=== PATIENT | male | born 1955 | race Hispanic/Latino ===

== ENCOUNTER 2017-07-03 09:32 | Inpatient (IN) | payer MEDICARE ==
[2017-07-03] VITALS (14 sets, daily range): BP systolic 120–145; BP diastolic 75–86
[~2017-07-03] VITALS: Ht 160 cm; Wt 64.8 kg
[2017-07-03 10:14] LABS: BASOPHILS % (AUTO) 1.3 % (0.0-5.0); EOSINOPHILS % (AUTO) 1.1 % (0.0-8.0); HEMATOCRIT 42.6 % (42-54); LYMPHOCYTES % (AUTO) 14.9 % (21.0-51.0); MEAN CORPUSCULAR HEMOGLOBIN 30.4 pg (27.0-33.0); MEAN CORPUSCULAR HGB CONC 33.4 g/dL (32.0-36.0); MEAN CORPUSCULAR VOLUME 91.1 fL (79-99); MONOCYTES % (AUTO) 9.7 % (3.0-13.0); NUCLEATED RED BLOOD CELLS 0.1 % (0.0-0.19); PLATELET COUNT (AUTO) 112 K/uL (130-400); RED BLOOD CELL COUNT(AUTO) 4.67 MIL/uL (4.50-6.20); RED CELL DISTRIBUTION WIDTH 18.4 % (11.0-15.5); WHITE BLOOD COUNT (AUTO) 5.1 K/uL (4.8-10.8)
[2017-07-03] MEDS ORDERED: MEROPENEM 1 GM VIAL ONE (10:19)
[2017-07-03 10:33] LABS: CREATININE 4.4 mg/dL (0.5-1.5); POTASSIUM 3.5 mmol/L (3.5-5.1)
[2017-07-03 10:37] LABS: ALBUMIN 3.2 g/dL (3.5-5.0); BILIRUBIN,TOTAL 4.2 mg/dL (0.2-1.0); TOTAL PROTEIN, SERUM 7.9 g/dL (6.0-8.3)
[2017-07-03 10:43] LABS: INR 1.2 (0.85-1.15); PARTIAL THROMBOPLASTIN TIME 27.5 SEC (26.3-35.5); PROTHROMBIN TIME 12.6 SEC (9.6-11.6)
[2017-07-03] MEDS ORDERED: DEXAMETHASONE SOD PHOSPHATE 10MG/ML 1ML VIAL ONE (15:04)
[2017-07-03] MEDS ORDERED: GLYCOPYRROLATE 0.2 MG/ML 5 ML VIAL ONE (15:04)
[2017-07-03] MEDS ORDERED: LIDOCAINE PF 2% 5ML ABBOJECT ONE (15:04)
[2017-07-03] MEDS ORDERED: FENTANYL CITRATE PF 50 MCG/1 ML 2ML VIAL ONE ×2 (15:05→16:11)
[2017-07-03] MEDS ORDERED: MIDAZOLAM HCL 1 MG/ML 2ML VIAL ONE (15:05)
[2017-07-03] MEDS ORDERED: PROPOFOL 10 MG/ML 20ML VIAL IV ONE (15:05)
[2017-07-03] MEDS ORDERED: NEOMY SULF/POLYMYXIN B SULFATE 1 ML AMPUL IR ONE (15:41)
[2017-07-03] MEDS: VANCOMYCIN 1.5 GM in SODIUM CHLORIDE 0.9% 250 ML IV SCH ×2 (16:00→16:15)
[2017-07-03] MEDS ORDERED: NEOMY SULF/BACITRAC ZN/POLY OINT 30GM TUBE TP ONE (16:04)
[2017-07-03] MEDS ORDERED: MORPHINE SULFATE 2 MG/ML 1ML SYG IV PRN (16:45)
[2017-07-03] MEDS ORDERED: ONDANSETRON HCL MDV 20ML 2 MG/ML VIAL IVP PRN ×2 (16:45→18:15)
[2017-07-03] MEDS ORDERED: HYDROCODONE/ACETAMINOPHEN 5/325 MG TAB PO PRN (16:45)
[2017-07-03] MEDS ORDERED: SODIUM CHLORIDE 0.9% 1000ML 1,000 ML IV ONE (17:08)
[2017-07-03] MEDS ORDERED: VANCOMYCIN PROTOCOL PER PHARMACY IV SCH (18:15)
[2017-07-03] MEDS ORDERED: AEC81 PO (18:41)
[2017-07-03] MEDS ORDERED: SUCR500T PO (18:41)
[2017-07-03] MEDS ORDERED: SEVE800T7 PO (18:41)
[2017-07-04 03:58] VITALS: BP 133/82
[2017-07-04 05:04] LABS: MEAN CORPUSCULAR HEMOGLOBIN 31.3 pg (27.0-33.0); MEAN CORPUSCULAR HGB CONC 33.5 g/dL (32.0-36.0); MEAN CORPUSCULAR VOLUME 93.4 fL (79-99); NUCLEATED RED BLOOD CELLS 0.1 % (0.0-0.19); PLATELET COUNT (AUTO) 136 K/uL (130-400); RED BLOOD CELL COUNT(AUTO) 4.39 MIL/uL (4.50-6.20); WHITE BLOOD COUNT (AUTO) 5.8 K/uL (4.8-10.8)
[2017-07-04 05:27] LABS: ALBUMIN 2.8 g/dL (3.5-5.0); BILIRUBIN,DIRECT 2.9 mg/dL (0.0-0.3); BILIRUBIN,TOTAL 4.3 mg/dL (0.2-1.0); CREATININE 6.2 mg/dL (0.5-1.5); POTASSIUM 4.4 mmol/L (3.5-5.1)
[2017-07-04 05:28] LABS: BASOPHILS % (MANUAL) 1 % (0-2); LYMPHOCYTES % (MANUAL) 16 % (22-44); MONOCYTES % (MANUAL) 14 % (2-9); REACTIVE LYMPHOCYTES 2 % (0-0); SEGMENTED NEUTROPHILS % 67 % (40-70)
[2017-07-04 05:29] LABS: MAN.DIFF COMMENT-IMPRESSION MANUAL DIFFERENTIAL
[2017-07-04 05:30] LABS: PLATELET MORPHOLOGY COMMENT ADEQUATE
[2017-07-04 07:00] VITALS: BP 118/79
[2017-07-04] MEDS: PANTOPRAZOLE SODIUM 40 MG TABLET.DR PO SCH (08:50)
[2017-07-04] MEDS: MEROPENEM 1 GM VIAL IVP SCH (08:50)
[2017-07-04] MEDS ORDERED: MEROPENEM 1GM IVPB PREMIXED 1 GM IV SCH (09:00)
[2017-07-04 11:00] VITALS: BP 113/73
[2017-07-04] MEDS ORDERED: ACETAMINOPHEN 325 MG TAB PO PRN (15:45)
[2017-07-04 16:00] VITALS: BP 129/83
[2017-07-04] MEDS: SEVELAMER HCL 800 MG TABLET PO SCH (16:56)
[2017-07-04] MEDS: SUCROFERRIC OXYHYDROXIDE 500 MG PO SCH (16:56)
[2017-07-04 19:34] VITALS: BP 122/76
[2017-07-05] VITALS (7 sets, daily range): BP systolic 124–147; BP diastolic 72–91
[2017-07-05 04:48] LABS: EOSINOPHILS % (AUTO) 1.4 % (0.0-8.0); HEMATOCRIT 41.6 % (42-54); LYMPHOCYTES % (AUTO) 14.9 % (21.0-51.0); MEAN CORPUSCULAR HEMOGLOBIN 30.7 pg (27.0-33.0); MONOCYTES % (AUTO) 13.7 % (3.0-13.0); NUCLEATED RED BLOOD CELLS 0.1 % (0.0-0.19); PLATELET COUNT (AUTO) 120 K/uL (130-400); RED BLOOD CELL COUNT(AUTO) 4.47 MIL/uL (4.50-6.20); RED CELL DISTRIBUTION WIDTH 18.9 % (11.0-15.5); WHITE BLOOD COUNT (AUTO) 5.2 K/uL (4.8-10.8)
[2017-07-05 05:08] LABS: CREATININE 7.8 mg/dL (0.5-1.5); POTASSIUM 4.2 mmol/L (3.5-5.1)
[2017-07-05] MEDS: SEVELAMER HCL 800 MG TABLET PO SCH ×3 (08:00→17:00)
[2017-07-05] MEDS: SUCROFERRIC OXYHYDROXIDE 500 MG PO SCH ×3 (08:00→17:00)
[2017-07-05] MEDS: FOLIC ACID/VITAMIN B COMP W-C 1 MG CAPSULE PO SCH (08:48)
[2017-07-05] MEDS: ASPIRIN 81 MG EC TAB PO SCH (08:48)
[2017-07-05] MEDS: PANTOPRAZOLE SODIUM 40 MG TABLET.DR PO SCH (08:48)
[2017-07-05] MEDS: MEROPENEM 1 GM VIAL IVP SCH (08:49)
[2017-07-05] MEDS ORDERED: VANCOMYCIN 1GM+NS 250ML 250 ML IV SCH (16:00)
[2017-07-06 03:48] VITALS: BP 144/86
[2017-07-06 04:13] LABS: BASOPHILS % (AUTO) 0.9 % (0.0-5.0); EOSINOPHILS % (AUTO) 1.9 % (0.0-8.0); HEMATOCRIT 41.6 % (42-54); LYMPHOCYTES % (AUTO) 12.9 % (21.0-51.0); MEAN CORPUSCULAR HEMOGLOBIN 30.4 pg (27.0-33.0); MEAN CORPUSCULAR HGB CONC 32.9 g/dL (32.0-36.0); MEAN CORPUSCULAR VOLUME 92.6 fL (79-99); MONOCYTES % (AUTO) 10.7 % (3.0-13.0); NEUTROPHILS % (AUTO) 73.6 % (40.0-77.0); NUCLEATED RED BLOOD CELLS 0.1 % (0.0-0.19); PLATELET COUNT (AUTO) 139 K/uL (130-400); RED BLOOD CELL COUNT(AUTO) 4.49 MIL/uL (4.50-6.20); RED CELL DISTRIBUTION WIDTH 18.6 % (11.0-15.5); WHITE BLOOD COUNT (AUTO) 5.9 K/uL (4.8-10.8)
[2017-07-06 04:24] LABS: POTASSIUM 4.5 mmol/L (3.5-5.1)
[2017-07-06 04:27] LABS: CREATININE 9.4 mg/dL (0.5-1.5)
[2017-07-06 07:16] VITALS: BP 124/80
[2017-07-06] MEDS: MEROPENEM 1 GM VIAL IVP SCH (07:46)
[2017-07-06] MEDS: FOLIC ACID/VITAMIN B COMP W-C 1 MG CAPSULE PO SCH (07:46)
[2017-07-06] MEDS: ASPIRIN 81 MG EC TAB PO SCH (07:46)
[2017-07-06] MEDS: PANTOPRAZOLE SODIUM 40 MG TABLET.DR PO SCH (07:46)
[2017-07-06] MEDS: SUCROFERRIC OXYHYDROXIDE 500 MG PO SCH ×3 (07:46→16:54)
[2017-07-06] MEDS: SEVELAMER HCL 800 MG TABLET PO SCH ×3 (07:46→16:54)
[2017-07-06 11:12] VITALS: BP 135/88
[2017-07-06 16:04] VITALS: BP 123/79
[2017-07-06 19:33] VITALS: BP 128/83
[2017-07-06 23:23] VITALS: BP 136/84
[2017-07-07 04:01] VITALS: BP 136/88
[2017-07-07 04:45] LABS: HEMATOCRIT 40.9 % (42-54); MEAN CORPUSCULAR HEMOGLOBIN 30.7 pg (27.0-33.0); MEAN CORPUSCULAR HGB CONC 33.3 g/dL (32.0-36.0); MEAN CORPUSCULAR VOLUME 92.2 fL (79-99); NUCLEATED RED BLOOD CELLS 0.1 % (0.0-0.19); PLATELET COUNT (AUTO) 127 K/uL (130-400); RED BLOOD CELL COUNT(AUTO) 4.44 MIL/uL (4.50-6.20); RED CELL DISTRIBUTION WIDTH 18.3 % (11.0-15.5); WHITE BLOOD COUNT (AUTO) 7.1 K/uL (4.8-10.8)
[2017-07-07 04:49] LABS: CREATININE 7.2 mg/dL (0.5-1.5); POTASSIUM 4.1 mmol/L (3.5-5.1)
[2017-07-07 07:21] VITALS: BP 115/71
[2017-07-07] MEDS: SUCROFERRIC OXYHYDROXIDE 500 MG PO SCH ×2 (07:31→11:32)
[2017-07-07] MEDS: FOLIC ACID/VITAMIN B COMP W-C 1 MG CAPSULE PO SCH (07:33)
[2017-07-07] MEDS: ASPIRIN 81 MG EC TAB PO SCH (07:33)
[2017-07-07] MEDS: MEROPENEM 1 GM VIAL IVP SCH (07:33)
[2017-07-07] MEDS: PANTOPRAZOLE SODIUM 40 MG TABLET.DR PO SCH (07:33)
[2017-07-07] MEDS: SEVELAMER HCL 800 MG TABLET PO SCH ×2 (07:33→11:32)
[2017-07-07 11:28] VITALS: BP 128/90
[2017-07-07] MEDS ORDERED: SULFAMETHOX-TMP DS 800/160 TAB PO SCH (11:30)
== END 2017-07-07 13:50 | disposition home health service (06) | DRG 252 ==
LOC: EDH 09:32 → EDHIP 14:00 → OBSVTOIN 14:00 → 2DH 17:43
PROVIDERS: ADMIT Internal Medicine Nephrology; ATTEND Internal Medicine Nephrology
PROC: 03BC0ZZ Excision of Left Radial Artery, Open Approach (ICD-10-PCS; principal; 2017-07-03 15:10)
PROC: 5A1D70Z Performance of Urinary Filtration, Intermittent, Less than 6 Hours Per Day (ICD-10-PCS; 2017-07-06)
DX: T82.7XXA Infection and inflammatory reaction due to other cardiac and vascular devices, implants and grafts, initial encounter (principal); N18.6 End stage renal disease; E11.22 Type 2 diabetes mellitus with diabetic chronic kidney disease; I12.0 Hypertensive chronic kidney disease with stage 5 chronic kidney disease or end stage renal disease; E11.51 Type 2 diabetes mellitus with diabetic peripheral angiopathy without gangrene; E83.39 Other disorders of phosphorus metabolism; I48.92 Unspecified atrial flutter; L03.90 Cellulitis, unspecified; R17 Unspecified jaundice; D64.9 Anemia, unspecified; E78.5 Hyperlipidemia, unspecified; I25.10 Atherosclerotic heart disease of native coronary artery without angina pectoris; Y83.2 Surgical operation with anastomosis, bypass or graft as the cause of abnormal reaction of the patient, or of later complication, without mention of misadventure at the time of the procedure; Z87.891 Personal history of nicotine dependence; Z88.0 Allergy status to penicillin; Z99.2 Dependence on renal dialysis; Z95.1 Presence of aortocoronary bypass graft; Z91.19 Patient's noncompliance with other medical treatment and regimen
CPT/HCPCS: 36415; 71045; 76700; 80048; 80053; 80076; 82948; 85025; 85027; 85610; 85730; 87040; 87070; 87076; 87077; 87186; 87205; 88304; 90935; 93005; A4218; J1100; J2001; J2185; J2250; J2704; J3010; J3370; J3490; J7030

== ENCOUNTER → 2017-10-08 | Outpatient (CLI) | payer MEDICARE ==
[~2017-10-08] MED LIST: AEC81 PO; SEVE800T7 PO; SUCR500T PO
== END | disposition home or self-care (01) ==
LOC: RAH 10:10
PROVIDERS: ATTEND Urology
DX: N28.1 Cyst of kidney, acquired (principal); N26.1 Atrophy of kidney (terminal); R18.8 Other ascites
CPT/HCPCS: 74176

== ENCOUNTER 2017-12-12 08:32 | Inpatient (IN) | payer MEDICARE ==
[~2017-12-12] VITALS: Ht 160 cm; Wt 65.4 kg
[2017-12-12 08:53] LABS: BASOPHILS % (AUTO) 0.5 % (0.0-5.0); EOSINOPHILS % (AUTO) 0.5 % (0.0-8.0); HEMATOCRIT 39.1 % (42-54); LYMPHOCYTES % (AUTO) 6.5 % (21.0-51.0); MEAN CORPUSCULAR HEMOGLOBIN 31.5 pg (27.0-33.0); MEAN CORPUSCULAR HGB CONC 32.8 g/dL (32.0-36.0); MEAN CORPUSCULAR VOLUME 95.9 fL (79-99); MONOCYTES % (AUTO) 8.9 % (3.0-13.0); NEUTROPHILS % (AUTO) 83.6 % (40.0-77.0); PLATELET COUNT (AUTO) 98 K/uL (130-400); RED BLOOD CELL COUNT(AUTO) 4.07 MIL/uL (4.50-6.20); WHITE BLOOD COUNT (AUTO) 8.2 K/uL (4.8-10.8)
[2017-12-12 09:07] LABS: POTASSIUM 3.3 mmol/L (3.5-5.1)
[2017-12-12] MEDS ORDERED: VANCOMYCIN 1GM+NS 250ML 250 ML IV ONE (09:08)
[2017-12-12] MEDS ORDERED: ONDANSETRON HCL 4 MG/2 ML VIAL ONE (09:10)
[2017-12-12] MEDS ORDERED: MORPHINE SULFATE 4 MG/1ML SYG ONE (09:10)
[2017-12-12 09:11] LABS: ALBUMIN 2.7 g/dL (3.5-5.0); BILIRUBIN,TOTAL 5.3 mg/dL (0.2-1.0); TOTAL PROTEIN, SERUM 6.7 g/dL (6.0-8.3)
[2017-12-12 09:19] LABS: CREATININE 6.8 mg/dL (0.5-1.5)
[2017-12-12 11:31] VITALS: BP 134/77
[2017-12-12] MEDS ORDERED: DEXTROSE 50%-WATER 50 ML DISP.SYRIN IV PRN (13:00)
[2017-12-12] MEDS ORDERED: GLUCAGON 1MG KIT 1 MG ML IM PRN (13:00)
[2017-12-12] MEDS ORDERED: SEVE800T7 PO (15:13)
[2017-12-12] MEDS ORDERED: PRAV20TA4 PO (15:13)
[2017-12-12] MEDS ORDERED: FOLI0.8T22 PO (15:14)
[2017-12-12] MEDS ORDERED: SUCR500T PO ×2 (15:18)
[2017-12-12 16:00] VITALS: BP 132/79
[2017-12-12] MEDS: INSULIN R PO SS1 SQ SCH ×2 (16:30→21:00)
[2017-12-12] MEDS: HYDROCODONE/ACETAMINOPHEN 5/325 MG TAB PO PRN ×2 (17:25→22:39)
[2017-12-12] MEDS: LEVOFLOXACIN 250 MG/D5W 50ML 50 ML IV SCH (17:48)
[2017-12-12 20:08] VITALS: BP 129/65
[2017-12-12] MEDS ORDERED: ZOSYN 3.375GM+NS 50ML 50 ML IV SCH ×2 (21:00)
[2017-12-13] VITALS (7 sets, daily range): BP systolic 88–139; BP diastolic 52–83
[2017-12-13 06:15] LABS: CREATININE 7.5 mg/dL (0.5-1.5); PHOSPHORUS 6.8 mg/dL (2.5-4.9); POTASSIUM 3.9 mmol/L (3.5-5.1)
[2017-12-13] MEDS: INSULIN R PO SS1 SQ SCH ×4 (07:30→21:00)
[2017-12-13] MEDS: LEVOFLOXACIN 250 MG/D5W 50ML 50 ML IV SCH (10:54)
[2017-12-13] MEDS: SEVELAMER HCL 800 MG TABLET PO SCH ×2 (11:28→16:44)
[2017-12-13] MEDS: FOLIC ACID/VITAMIN B COMP W-C 1 MG CAPSULE PO SCH (11:28)
[2017-12-13 12:04] LABS: HEMATOCRIT 38.6 % (42-54); MEAN CORPUSCULAR HEMOGLOBIN 32.3 pg (27.0-33.0); MEAN CORPUSCULAR HGB CONC 33.4 g/dL (32.0-36.0); MEAN CORPUSCULAR VOLUME 96.6 fL (79-99); PLATELET COUNT (AUTO) 112 K/uL (130-400); RED CELL DISTRIBUTION WIDTH 16.9 % (11.0-15.5); WHITE BLOOD COUNT (AUTO) 8.8 K/uL (4.8-10.8)
[2017-12-13] MEDS: SIMVASTATIN 20 MG TABLET PO SCH (21:03)
[2017-12-13] MEDS: HYDROCODONE/ACETAMINOPHEN 5/325 MG TAB PO PRN (21:03)
[2017-12-14 03:05] VITALS: BP 134/71
[2017-12-14 04:52] LABS: PHOSPHORUS 7.6 mg/dL (2.5-4.9)
[2017-12-14 05:05] LABS: CREATININE 8.5 mg/dL (0.5-1.5)
[2017-12-14] MEDS: HYDROCODONE/ACETAMINOPHEN 5/325 MG TAB PO PRN ×3 (06:18→18:35)
[2017-12-14] MEDS: INSULIN R PO SS1 SQ SCH ×4 (06:38→20:47)
[2017-12-14 07:30] VITALS: BP 130/74
[2017-12-14] MEDS: SEVELAMER HCL 800 MG TABLET PO SCH ×3 (08:00→18:34)
[2017-12-14] MEDS ORDERED: 0.9% SODIUM CHLORIDE 250 ML IV BAG IV PRN (10:45)
[2017-12-14] MEDS ORDERED: ALBUMIN (HUMAN) 25% 100 ML IV PRN (10:45)
[2017-12-14 11:00] VITALS: BP 138/33
[2017-12-14] MEDS ORDERED: VANCOMYCIN 1GM+NS 250ML 250 ML IV ONE (11:17)
[2017-12-14] MEDS: ASPIRIN 81 MG EC TAB PO SCH (11:19)
[2017-12-14] MEDS: FOLIC ACID/VITAMIN B COMP W-C 1 MG CAPSULE PO SCH (11:19)
[2017-12-14] MEDS: LEVOFLOXACIN 250 MG/D5W 50ML 50 ML IV SCH (11:23)
[2017-12-14] MEDS: VANCOMYCIN 1GM+NS 250ML 250 ML IV SCH (11:25)
[2017-12-14 16:00] VITALS: BP 130/72
[2017-12-14 20:00] VITALS: BP 123/71
[2017-12-14] MEDS: SIMVASTATIN 20 MG TABLET PO SCH (20:47)
[2017-12-15 00:12] VITALS: BP 126/66
[2017-12-15 04:12] VITALS: BP 125/70
[2017-12-15 04:33] LABS: CREATININE 6.4 mg/dL (0.5-1.5); POTASSIUM 3.6 mmol/L (3.5-5.1)
[2017-12-15] MEDS: HYDROCODONE/ACETAMINOPHEN 5/325 MG TAB PO PRN ×4 (05:55→20:49)
[2017-12-15] MEDS: INSULIN R PO SS1 SQ SCH ×4 (05:58→20:53)
[2017-12-15 07:30] VITALS: BP 137/72
[2017-12-15] MEDS: SEVELAMER HCL 800 MG TABLET PO SCH ×3 (08:00→17:00)
[2017-12-15] MEDS: ASPIRIN 81 MG EC TAB PO SCH (10:18)
[2017-12-15] MEDS: FOLIC ACID/VITAMIN B COMP W-C 1 MG CAPSULE PO SCH (10:18)
[2017-12-15] MEDS: LEVOFLOXACIN 250 MG/D5W 50ML 50 ML IV SCH (10:19)
[2017-12-15 11:00] VITALS: BP 119/65
[2017-12-15 16:00] VITALS: BP 130/79
[2017-12-15 20:00] VITALS: BP 133/67
[2017-12-15] MEDS: SIMVASTATIN 20 MG TABLET PO SCH (20:51)
[2017-12-16] VITALS (24 sets, daily range): BP systolic 99–145; BP diastolic 44–80
[2017-12-16] MEDS: HYDROCODONE/ACETAMINOPHEN 5/325 MG TAB PO PRN ×2 (03:31→07:49)
[2017-12-16] MEDS: INSULIN R PO SS1 SQ SCH ×3 (05:48→21:00)
[2017-12-16] MEDS: SEVELAMER HCL 800 MG TABLET PO SCH ×2 (07:49→13:30)
[2017-12-16] MEDS: LEVOFLOXACIN 250 MG/D5W 50ML 50 ML IV SCH (07:49)
[2017-12-16] MEDS: ASPIRIN 81 MG EC TAB PO SCH (07:50)
[2017-12-16] MEDS: FOLIC ACID/VITAMIN B COMP W-C 1 MG CAPSULE PO SCH (07:50)
[2017-12-16] MEDS: SODIUM CHLORIDE 0.9% 1000ML 1,000 ML IV PRN (09:17)
[2017-12-16] MEDS ORDERED: PROPOFOL 10 MG/ML 20ML VIAL IV ONE (09:37)
[2017-12-16] MEDS ORDERED: FENTANYL CITRATE PF 50 MCG/1 ML 2ML VIAL ONE (09:37)
[2017-12-16] MEDS ORDERED: KETAMINE 50MG/ML SYRINGE 50 MG/ML DISP.SYRIN IV ONE (09:39)
[2017-12-16] MEDS ORDERED: ACETAMINOPHEN-CODEINE 300/30MG TAB PO PRN (10:15)
[2017-12-16] MEDS: SODIUM CHLORIDE 0.9% 1000ML 1,000 ML IV SCH ×2 (10:15→22:23)
[2017-12-16] MEDS: VANCOMYCIN 1GM+NS 250ML 250 ML IV SCH (13:30)
[2017-12-16] MEDS ORDERED: IOHEXOL-350 75 ML VIAL IV ONE (15:06)
[2017-12-16] MEDS ORDERED: IOHEXOL-350 50ML VIAL IV ONE (15:07)
[2017-12-16] MEDS: MORPHINE SULFATE 4 MG/1ML SYG IV PRN (18:52)
[2017-12-16] MEDS: SIMVASTATIN 20 MG TABLET PO SCH (22:20)
[2017-12-16] MEDS: PREDNISONE 20 MG TABLET PO SCH (22:20)
[2017-12-16] MEDS: DIPHENHYDRAMINE HCL 25 MG CAPSULE PO SCH (22:20)
[2017-12-16] MEDS: FAMOTIDINE 20MG TAB 20 MG TAB PO SCH (22:23)
[2017-12-17 03:45] VITALS: BP 140/80
[2017-12-17 04:10] LABS: BASOPHILS % (AUTO) 0.3 % (0.0-5.0); EOSINOPHILS % (AUTO) 0.3 % (0.0-8.0); HEMATOCRIT 36.6 % (42-54); LYMPHOCYTES % (AUTO) 4.8 % (21.0-51.0); MEAN CORPUSCULAR HEMOGLOBIN 32.9 pg (27.0-33.0); MEAN CORPUSCULAR HGB CONC 33.9 g/dL (32.0-36.0); MEAN CORPUSCULAR VOLUME 96.8 fL (79-99); MONOCYTES % (AUTO) 11.3 % (3.0-13.0); NEUTROPHILS % (AUTO) 83.3 % (40.0-77.0); PLATELET COUNT (AUTO) 150 K/uL (130-400); RED BLOOD CELL COUNT(AUTO) 3.78 MIL/uL (4.50-6.20); RED CELL DISTRIBUTION WIDTH 17.4 % (11.0-15.5); WHITE BLOOD COUNT (AUTO) 11.1 K/uL (4.8-10.8)
[2017-12-17 04:19] LABS: CREATININE 5.8 mg/dL (0.5-1.5); POTASSIUM 4.3 mmol/L (3.5-5.1)
[2017-12-17] MEDS: MORPHINE SULFATE 4 MG/1ML SYG IV PRN ×2 (04:40→05:07)
[2017-12-17] MEDS ORDERED: PREDNISONE 20 MG TABLET PO SCH (07:00)
[2017-12-17] MEDS ORDERED: DIPHENHYDRAMINE HCL 25 MG CAPSULE PO SCH (07:00)
[2017-12-17] MEDS: INSULIN R PO SS1 SQ SCH ×5 (07:30→21:00)
[2017-12-17 08:00] VITALS: BP 160/90
[2017-12-17] MEDS: SEVELAMER HCL 800 MG TABLET PO SCH ×3 (08:00→16:32)
[2017-12-17] MEDS: FAMOTIDINE 20MG TAB 20 MG TAB PO SCH (09:21)
[2017-12-17] MEDS: DIPHENHYDRAMINE HCL 25 MG CAPSULE PO SCH (09:21)
[2017-12-17] MEDS: PREDNISONE 20 MG TABLET PO SCH (09:21)
[2017-12-17] MEDS: LEVOFLOXACIN 250 MG/D5W 50ML 50 ML IV SCH (09:59)
[2017-12-17] MEDS ORDERED: IOHEXOL-350 75 ML VIAL IV ONE (10:46)
[2017-12-17] MEDS ORDERED: IOHEXOL-350 50ML VIAL IV ONE (10:46)
[2017-12-17 11:00] VITALS: BP 144/80
[2017-12-17] MEDS: FOLIC ACID/VITAMIN B COMP W-C 1 MG CAPSULE PO SCH (12:03)
[2017-12-17] MEDS ORDERED: SEVE800 PO (12:19)
[2017-12-17 16:00] VITALS: BP 164/87
[2017-12-17] MEDS: CLOPIDOGREL BISULFATE 75 MG TAB PO SCH (18:47)
[2017-12-17 19:05] VITALS: BP 132/75
[2017-12-17] MEDS: SIMVASTATIN 20 MG TABLET PO SCH (22:04)
[2017-12-18] VITALS (7 sets, daily range): BP systolic 119–148; BP diastolic 61–80
[2017-12-18] MEDS ORDERED: ACETAMINOPHEN 325 MG TAB ONE (00:05)
[2017-12-18] MEDS: SODIUM CHLORIDE 0.9% 1000ML 1,000 ML IV SCH ×2 (02:15→21:38)
[2017-12-18 06:21] LABS: BASOPHILS % (AUTO) 0.1 % (0.0-5.0); HEMATOCRIT 37.9 % (42-54); LYMPHOCYTES % (AUTO) 2.3 % (21.0-51.0); MEAN CORPUSCULAR HEMOGLOBIN 31.5 pg (27.0-33.0); MEAN CORPUSCULAR HGB CONC 32.6 g/dL (32.0-36.0); MEAN CORPUSCULAR VOLUME 96.5 fL (79-99); MONOCYTES % (AUTO) 6.4 % (3.0-13.0); NEUTROPHILS % (AUTO) 91.2 % (40.0-77.0); PLATELET COUNT (AUTO) 133 K/uL (130-400); RED BLOOD CELL COUNT(AUTO) 3.93 MIL/uL (4.50-6.20); WHITE BLOOD COUNT (AUTO) 16.2 K/uL (4.8-10.8)
[2017-12-18 06:32] LABS: POTASSIUM 4.2 mmol/L (3.5-5.1)
[2017-12-18] MEDS: INSULIN R PO SS1 SQ SCH ×4 (07:30→21:00)
[2017-12-18] MEDS: HYDROCODONE/ACETAMINOPHEN 5/325 MG TAB PO PRN ×3 (10:13→21:41)
[2017-12-18] MEDS: LEVOFLOXACIN 250 MG/D5W 50ML 50 ML IV SCH (10:55)
[2017-12-18] MEDS: FOLIC ACID/VITAMIN B COMP W-C 1 MG CAPSULE PO SCH (10:58)
[2017-12-18] MEDS: CLOPIDOGREL BISULFATE 75 MG TAB PO SCH ×2 (10:59→12:38)
[2017-12-18] MEDS: FAMOTIDINE 20MG TAB 20 MG TAB PO SCH (10:59)
[2017-12-18] MEDS: SEVELAMER HCL 800 MG TABLET PO SCH ×3 (10:59→17:16)
[2017-12-18] MEDS ORDERED: PHARMACY COMMUNICATION MISC SCH (12:45)
[2017-12-18] MEDS: VANCOMYCIN 1GM+NS 250ML 250 ML IV SCH (13:05)
[2017-12-18] MEDS ORDERED: SEVELAMER HCL 800 MG TABLET PO SCH (17:00)
[2017-12-18] MEDS ORDERED: GENTAMICIN 80 MG/NS 100 ML PB 100 ML IV SCH (19:30)
[2017-12-18] MEDS: SIMVASTATIN 20 MG TABLET PO SCH (21:37)
[2017-12-19 03:13] VITALS: BP 133/71
[2017-12-19] MEDS: SODIUM CHLORIDE 0.9% 1000ML 1,000 ML IV SCH (03:59)
[2017-12-19 04:55] LABS: HEMATOCRIT 34.8 % (42-54); MEAN CORPUSCULAR HEMOGLOBIN 32.9 pg (27.0-33.0); MEAN CORPUSCULAR HGB CONC 34.1 g/dL (32.0-36.0); MEAN CORPUSCULAR VOLUME 96.5 fL (79-99); PLATELET COUNT (AUTO) 144 K/uL (130-400); WHITE BLOOD COUNT (AUTO) 9.3 K/uL (4.8-10.8)
[2017-12-19 05:04] LABS: ALBUMIN 2.3 g/dL (3.5-5.0); BILIRUBIN,TOTAL 4.1 mg/dL (0.2-1.0); CREATININE 5.6 mg/dL (0.5-1.5); POTASSIUM 3.7 mmol/L (3.5-5.1); TOTAL PROTEIN, SERUM 6.2 g/dL (6.0-8.3)
[2017-12-19 05:22] LABS: LYMPHOCYTES % (MANUAL) 4 % (22-44); MONOCYTES % (MANUAL) 1 % (2-9); SEGMENTED NEUTROPHILS % 95 % (40-70)
[2017-12-19 05:25] LABS: MAN.DIFF COMMENT-IMPRESSION MANUAL DIFFERENTIAL; PLATELET MORPHOLOGY COMMENT ADEQUATE
[2017-12-19] MEDS: INSULIN R PO SS1 SQ SCH ×4 (06:14→21:00)
[2017-12-19] MEDS: HYDROCODONE/ACETAMINOPHEN 5/325 MG TAB PO PRN ×3 (06:15→19:02)
[2017-12-19] MEDS: SEVELAMER HCL 800 MG TABLET PO SCH ×3 (07:52→16:36)
[2017-12-19 07:56] VITALS: BP 87/57
[2017-12-19] MEDS: LEVOFLOXACIN 250 MG/D5W 50ML 50 ML IV SCH (08:03)
[2017-12-19] MEDS: CLOPIDOGREL BISULFATE 75 MG TAB PO SCH (08:10)
[2017-12-19] MEDS: FAMOTIDINE 20MG TAB 20 MG TAB PO SCH (08:10)
[2017-12-19] MEDS: FOLIC ACID/VITAMIN B COMP W-C 1 MG CAPSULE PO SCH (08:10)
[2017-12-19 11:41] VITALS: BP 114/69
[2017-12-19 16:33] VITALS: BP 127/74
[2017-12-19 19:00] VITALS: BP 117/70
[2017-12-19] MEDS: SIMVASTATIN 20 MG TABLET PO SCH (21:28)
[2017-12-19 23:26] VITALS: BP 126/72
[2017-12-20] MEDS: HYDROCODONE/ACETAMINOPHEN 5/325 MG TAB PO PRN ×5 (00:15→22:18)
[2017-12-20 03:32] VITALS: BP 130/68
[2017-12-20 05:33] LABS: HEMATOCRIT 36.8 % (42-54); MEAN CORPUSCULAR HEMOGLOBIN 32.4 pg (27.0-33.0); MEAN CORPUSCULAR HGB CONC 33.7 g/dL (32.0-36.0); NUCLEATED RED BLOOD CELLS 0.1 % (0.0-0.19); PLATELET COUNT (AUTO) 114 K/uL (130-400); RED BLOOD CELL COUNT(AUTO) 3.84 MIL/uL (4.50-6.20); RED CELL DISTRIBUTION WIDTH 17.6 % (11.0-15.5); WHITE BLOOD COUNT (AUTO) 8.7 K/uL (4.8-10.8)
[2017-12-20 05:45] LABS: CREATININE 6.8 mg/dL (0.5-1.5); POTASSIUM 4.3 mmol/L (3.5-5.1)
[2017-12-20] MEDS: INSULIN R PO SS1 SQ SCH ×4 (06:11→21:00)
[2017-12-20] MEDS: SODIUM CHLORIDE 0.9% 1000ML 1,000 ML IV SCH (06:48)
[2017-12-20] MEDS: SEVELAMER HCL 800 MG TABLET PO SCH ×3 (07:53→16:44)
[2017-12-20 08:25] VITALS: BP 124/74
[2017-12-20] MEDS: CLOPIDOGREL BISULFATE 75 MG TAB PO SCH (09:37)
[2017-12-20] MEDS: LEVOFLOXACIN 250 MG/D5W 50ML 50 ML IV SCH (09:37)
[2017-12-20] MEDS: FAMOTIDINE 20MG TAB 20 MG TAB PO SCH (09:37)
[2017-12-20] MEDS: FOLIC ACID/VITAMIN B COMP W-C 1 MG CAPSULE PO SCH (09:37)
[2017-12-20 12:00] VITALS: BP 95/77
[2017-12-20 16:04] VITALS: BP 101/63
[2017-12-20 19:16] VITALS: BP 124/72
[2017-12-20] MEDS: SIMVASTATIN 20 MG TABLET PO SCH (21:07)
[2017-12-20 23:24] VITALS: BP 130/74
[2017-12-21] VITALS (11 sets, daily range): BP systolic 124–159; BP diastolic 61–84
[2017-12-21] MEDS: HYDROCODONE/ACETAMINOPHEN 5/325 MG TAB PO PRN ×3 (02:42→19:47)
[2017-12-21] MEDS: INSULIN R PO SS1 SQ SCH ×4 (05:50→20:57)
[2017-12-21 06:05] LABS: HEMATOCRIT 36.5 % (42-54); MEAN CORPUSCULAR HEMOGLOBIN 32.9 pg (27.0-33.0); MEAN CORPUSCULAR HGB CONC 34.5 g/dL (32.0-36.0); MEAN CORPUSCULAR VOLUME 95.6 fL (79-99); PLATELET COUNT (AUTO) 123 K/uL (130-400); RED BLOOD CELL COUNT(AUTO) 3.81 MIL/uL (4.50-6.20); RED CELL DISTRIBUTION WIDTH 17.5 % (11.0-15.5); WHITE BLOOD COUNT (AUTO) 9.5 K/uL (4.8-10.8)
[2017-12-21 06:19] LABS: INR 1.41 (0.85-1.15); PROTHROMBIN TIME 14.7 SEC (9.6-11.6)
[2017-12-21 06:23] LABS: POTASSIUM 4.4 mmol/L (3.5-5.1); VANCOMYCIN LEVEL 19.6 mcg/mL (18.0-26.0)
[2017-12-21 06:24] LABS: CREATININE 7.9 mg/dL (0.5-1.5)
[2017-12-21] MEDS: SEVELAMER HCL 800 MG TABLET PO SCH ×3 (08:00→17:11)
[2017-12-21 08:17] LABS: BASOPHILS % (MANUAL) 1 % (0-2); LYMPHOCYTES % (MANUAL) 8 % (22-44); MAN.DIFF COMMENT-IMPRESSION MANUAL DIFFERENTIAL; MONOCYTES % (MANUAL) 6 % (2-9); PLATELET MORPHOLOGY COMMENT ADEQUATE; SEGMENTED NEUTROPHILS % 85 % (40-70)
[2017-12-21] MEDS: FOLIC ACID/VITAMIN B COMP W-C 1 MG CAPSULE PO SCH (08:52)
[2017-12-21] MEDS: FAMOTIDINE 20MG TAB 20 MG TAB PO SCH (08:52)
[2017-12-21] MEDS: LEVOFLOXACIN 250 MG/D5W 50ML 50 ML IV SCH (08:55)
[2017-12-21] MEDS ORDERED: DIPHENHYDRAMINE HCL 25 MG CAPSULE PO SCH (10:45)
[2017-12-21] MEDS ORDERED: METHYLPREDNISOLONE SOD SUCC 125MG/2ML VIAL IVP SCH (10:45)
[2017-12-21] MEDS ORDERED: IODIXANOL 320 MG/ML 100 ML VIAL ONE (12:12)
[2017-12-21] MEDS ORDERED: LIDOCAINE HCL-MPF 2% 5ML VIAL ONE (12:12)
[2017-12-21] MEDS ORDERED: NITROGLYCERIN 5 MG/ML 10 ML VIAL IV ONE (12:12)
[2017-12-21] MEDS ORDERED: HEPARIN SODIUM 1000UNIT/ML 10ML VIAL ONE (12:12)
[2017-12-21] MEDS ORDERED: MIDAZOLAM HCL 1 MG/ML 2ML VIAL ONE (13:02)
[2017-12-21] MEDS ORDERED: GLUCAGON 1MG KIT 1 MG ML IM PRN (13:45)
[2017-12-21] MEDS ORDERED: DEXTROSE 50%-WATER 50 ML DISP.SYRIN IV PRN (13:45)
[2017-12-21] MEDS: CLOPIDOGREL BISULFATE 75 MG TAB PO SCH (18:03)
[2017-12-21] MEDS: SIMVASTATIN 20 MG TABLET PO SCH (19:46)
[2017-12-21] MEDS: SODIUM CHLORIDE 0.9% 1000ML 1,000 ML IV PRN (21:41)
[2017-12-21] MEDS: VANCOMYCIN 1GM+NS 250ML 250 ML IV SCH (21:42)
[2017-12-22] VITALS: BP 120/95
[2017-12-22] MEDS: HYDROCODONE/ACETAMINOPHEN 5/325 MG TAB PO PRN ×2 (03:28→18:00)
[2017-12-22 04:00] VITALS: BP 140/74
[2017-12-22 05:14] LABS: HEMATOCRIT 37.2 % (42-54); MEAN CORPUSCULAR HEMOGLOBIN 31.5 pg (27.0-33.0); MEAN CORPUSCULAR VOLUME 95.3 fL (79-99); PLATELET COUNT (AUTO) 101 K/uL (130-400); RED CELL DISTRIBUTION WIDTH 17.9 % (11.0-15.5); WHITE BLOOD COUNT (AUTO) 11.4 K/uL (4.8-10.8)
[2017-12-22 05:23] LABS: CREATININE 5.9 mg/dL (0.5-1.5); POTASSIUM 4.5 mmol/L (3.5-5.1)
[2017-12-22] MEDS: INSULIN R PO SS1 SQ SCH ×4 (06:08→20:46)
[2017-12-22 07:30] VITALS: BP 125/73
[2017-12-22] MEDS: SEVELAMER HCL 800 MG TABLET PO SCH ×3 (09:04→17:07)
[2017-12-22] MEDS: FAMOTIDINE 20MG TAB 20 MG TAB PO SCH (09:04)
[2017-12-22] MEDS: CLOPIDOGREL BISULFATE 75 MG TAB PO SCH (09:05)
[2017-12-22] MEDS: FOLIC ACID/VITAMIN B COMP W-C 1 MG CAPSULE PO SCH (09:05)
[2017-12-22] MEDS: LEVOFLOXACIN 250 MG/D5W 50ML 50 ML IV SCH (09:05)
[2017-12-22 11:00] VITALS: BP 131/83
[2017-12-22 16:00] VITALS: BP 124/69
[2017-12-22] MEDS: HONEY 1 APPL/ML TUBE TP SCH (17:03)
[2017-12-22 20:00] VITALS: BP 132/76
[2017-12-22] MEDS: SIMVASTATIN 20 MG TABLET PO SCH (20:46)
[2017-12-23] VITALS: BP 124/65
[2017-12-23 04:00] VITALS: BP 126/65
[2017-12-23 04:18] LABS: HEMATOCRIT 36.4 % (42-54); MEAN CORPUSCULAR HEMOGLOBIN 32.4 pg (27.0-33.0); MEAN CORPUSCULAR HGB CONC 33.7 g/dL (32.0-36.0); MEAN CORPUSCULAR VOLUME 96.3 fL (79-99); PLATELET COUNT (AUTO) 124 K/uL (130-400); RED BLOOD CELL COUNT(AUTO) 3.78 MIL/uL (4.50-6.20); RED CELL DISTRIBUTION WIDTH 17.9 % (11.0-15.5); WHITE BLOOD COUNT (AUTO) 15.1 K/uL (4.8-10.8)
[2017-12-23 04:27] LABS: ALBUMIN 2.3 g/dL (3.5-5.0); BILIRUBIN,TOTAL 4.3 mg/dL (0.2-1.0); CREATININE 6.9 mg/dL (0.5-1.5); POTASSIUM 4.9 mmol/L (3.5-5.1); TOTAL PROTEIN, SERUM 6.3 g/dL (6.0-8.3); VANCOMYCIN LEVEL 19.6 mcg/mL (18.0-26.0)
[2017-12-23 04:30] LABS: BAND NEUTROPHILS % (MANUAL) 4 % (0-2); LYMPHOCYTES % (MANUAL) 4 % (22-44); MAN.DIFF COMMENT-IMPRESSION MANUAL DIF; MONOCYTES % (MANUAL) 6 % (2-9); PLATELET MORPHOLOGY COMMENT SLIGHTLY DECREASED; SEGMENTED NEUTROPHILS % 86 % (40-70)
[2017-12-23] MEDS: INSULIN R PO SS1 SQ SCH ×3 (06:22→16:30)
[2017-12-23 07:45] VITALS: BP 132/74
[2017-12-23] MEDS: HYDROCODONE/ACETAMINOPHEN 5/325 MG TAB PO PRN ×2 (08:00→15:43)
[2017-12-23] MEDS: VANCOMYCIN 1GM+NS 250ML 250 ML IV SCH (08:47)
[2017-12-23] MEDS: SEVELAMER HCL 800 MG TABLET PO SCH ×2 (09:44→12:14)
[2017-12-23] MEDS: CLOPIDOGREL BISULFATE 75 MG TAB PO SCH (09:45)
[2017-12-23] MEDS: FOLIC ACID/VITAMIN B COMP W-C 1 MG CAPSULE PO SCH (09:45)
[2017-12-23] MEDS: FAMOTIDINE 20MG TAB 20 MG TAB PO SCH (09:45)
[2017-12-23] MEDS: LEVOFLOXACIN 250 MG/D5W 50ML 50 ML IV SCH (09:49)
[2017-12-23 11:57] VITALS: BP 128/75
[2017-12-23] MEDS ORDERED: SULF1TAB42 PO (14:44)
[2017-12-23] MEDS ORDERED: LEVO500T2 PO (14:44)
[2017-12-23 16:00] VITALS: BP 125/82
[2017-12-23] MEDS: HONEY 1 APPL/ML TUBE TP SCH (17:26)
== END 2017-12-23 17:40 | disposition home health service (06) | DRG 264 ==
LOC: EDH 08:32 → OBSVTOIN 10:49 → 3DH 10:49
PROVIDERS: ADMIT Internal Medicine Nephrology; ATTEND Internal Medicine Nephrology
PROC: 5A1D70Z Performance of Urinary Filtration, Intermittent, Less than 6 Hours Per Day (ICD-10-PCS; 2017-12-14)
PROC: 0SQ Lower Joints, Repair (ICD-10-PCS; 2017-12-15)
PROC: 5A1D70Z Performance of Urinary Filtration, Intermittent, Less than 6 Hours Per Day (ICD-10-PCS; 2017-12-16)
PROC: 0JBM0ZZ Excision of Left Upper Leg Subcutaneous Tissue and Fascia, Open Approach (ICD-10-PCS; principal; 2017-12-17)
PROC: 5A1D70Z Performance of Urinary Filtration, Intermittent, Less than 6 Hours Per Day (ICD-10-PCS; 2017-12-18)
PROC: 0J9M0ZX Drainage of Left Upper Leg Subcutaneous Tissue and Fascia, Open Approach, Diagnostic (ICD-10-PCS; 2017-12-21)
PROC: 0YHB33Z Insertion of Infusion Device into Left Lower Extremity, Percutaneous Approach (ICD-10-PCS; 2017-12-21)
PROC: B4101ZZ Fluoroscopy of Abdominal Aorta using Low Osmolar Contrast (ICD-10-PCS; 2017-12-21)
PROC: B41G1ZZ Fluoroscopy of Left Lower Extremity Arteries using Low Osmolar Contrast (ICD-10-PCS; 2017-12-21)
PROC: 5A1D70Z Performance of Urinary Filtration, Intermittent, Less than 6 Hours Per Day (ICD-10-PCS; 2017-12-21)
PROC: 5A1D70Z Performance of Urinary Filtration, Intermittent, Less than 6 Hours Per Day (ICD-10-PCS; 2017-12-23)
DX: E11.52 Type 2 diabetes mellitus with diabetic peripheral angiopathy with gangrene (principal); N18.6 End stage renal disease; L03.116 Cellulitis of left lower limb; I12.0 Hypertensive chronic kidney disease with stage 5 chronic kidney disease or end stage renal disease; L02.416 Cutaneous abscess of left lower limb; E11.22 Type 2 diabetes mellitus with diabetic chronic kidney disease; D64.9 Anemia, unspecified; I25.10 Atherosclerotic heart disease of native coronary artery without angina pectoris; E11.21 Type 2 diabetes mellitus with diabetic nephropathy; I25.5 Ischemic cardiomyopathy; Z99.2 Dependence on renal dialysis; E78.5 Hyperlipidemia, unspecified; I99.8 Other disorder of circulatory system; Z91.041 Radiographic dye allergy status; Z95.1 Presence of aortocoronary bypass graft
CPT/HCPCS: 36247; 36415; 73552; 75630; 75635; 80048; 80053; 80202; 82948; 84100; 85025; 85027; 85610; 85730; 87040; 88304; 90935; 93925; 99156; 99157; C1769; C1894; J1580; J1644; J1815; J1956; J2250; J2270; J2405; J2704; J2930; J3010; J3370; J3490; J7030; J7070; Q0163; Q9967

== ENCOUNTER → 2017-12-25 | Outpatient (CLI) | payer MEDICARE ==
[~2017-12-25] MED LIST changes: +FOLI0.8T22 PO; +HONEY 1 APPL/ML TUBE TP ONE; +LEVO500T2 PO; +LIDOCAINE HCL 4% LTA SOL 4 ML VIAL TP ONE; +PRAV20TA4 PO; +SULF1TAB42 PO
[2017-12-25 15:17] VITALS: BP 140/70
== END | disposition home or self-care (01) ==
LOC: WHH 12:45
PROVIDERS: ATTEND Family Medicine
DX: T87.89 Other complications of amputation stump (principal); T81.89XA Other complications of procedures, not elsewhere classified, initial encounter; E11.621 Type 2 diabetes mellitus with foot ulcer; L97.521 Non-pressure chronic ulcer of other part of left foot limited to breakdown of skin; E11.622 Type 2 diabetes mellitus with other skin ulcer; L97.211 Non-pressure chronic ulcer of right calf limited to breakdown of skin; L97.121 Non-pressure chronic ulcer of left thigh limited to breakdown of skin; E11.22 Type 2 diabetes mellitus with diabetic chronic kidney disease; I12.0 Hypertensive chronic kidney disease with stage 5 chronic kidney disease or end stage renal disease; N18.6 End stage renal disease; I25.10 Atherosclerotic heart disease of native coronary artery without angina pectoris; E78.5 Hyperlipidemia, unspecified; E11.21 Type 2 diabetes mellitus with diabetic nephropathy; E11.52 Type 2 diabetes mellitus with diabetic peripheral angiopathy with gangrene; I96 Gangrene, not elsewhere classified; Z95.1 Presence of aortocoronary bypass graft; Z99.2 Dependence on renal dialysis; Y83.8 Other surgical procedures as the cause of abnormal reaction of the patient, or of later complication, without mention of misadventure at the time of the procedure; Y83.5 Amputation of limb(s) as the cause of abnormal reaction of the patient, or of later complication, without mention of misadventure at the time of the procedure; Y92.89 Other specified places as the place of occurrence of the external cause
CPT/HCPCS: 11042; 11045; A4450; G0463; L3260

== ENCOUNTER → 2017-12-28 | Outpatient (CLI) | payer MEDICARE ==
[~2017-12-28] MED LIST changes: -HONEY 1 APPL/ML TUBE TP ONE; -LIDOCAINE HCL 4% LTA SOL 4 ML VIAL TP ONE
[2017-12-28 12:04] VITALS: BP 129/65
== END | disposition home or self-care (01) ==
LOC: WHH 09:50
PROVIDERS: ATTEND Family Medicine
DX: T81.89XD Other complications of procedures, not elsewhere classified, subsequent encounter (principal); E11.621 Type 2 diabetes mellitus with foot ulcer; L97.121 Non-pressure chronic ulcer of left thigh limited to breakdown of skin; L97.211 Non-pressure chronic ulcer of right calf limited to breakdown of skin; E11.622 Type 2 diabetes mellitus with other skin ulcer; L97.521 Non-pressure chronic ulcer of other part of left foot limited to breakdown of skin; I25.10 Atherosclerotic heart disease of native coronary artery without angina pectoris; E11.52 Type 2 diabetes mellitus with diabetic peripheral angiopathy with gangrene; I96 Gangrene, not elsewhere classified; E78.5 Hyperlipidemia, unspecified; E11.22 Type 2 diabetes mellitus with diabetic chronic kidney disease; I12.0 Hypertensive chronic kidney disease with stage 5 chronic kidney disease or end stage renal disease; N18.6 End stage renal disease; E11.21 Type 2 diabetes mellitus with diabetic nephropathy; Z95.1 Presence of aortocoronary bypass graft; Z99.2 Dependence on renal dialysis; Y83.8 Other surgical procedures as the cause of abnormal reaction of the patient, or of later complication, without mention of misadventure at the time of the procedure
CPT/HCPCS: 82948 ×5; G0463

== ENCOUNTER → 2017-12-29 | Outpatient (CLI) | payer MEDICARE ==
[2017-12-29 11:01] VITALS: BP 112/65
== END | disposition home or self-care (01) ==
LOC: WHH 09:30
PROVIDERS: ATTEND Family Medicine
DX: T81.89XD Other complications of procedures, not elsewhere classified, subsequent encounter (principal); E11.621 Type 2 diabetes mellitus with foot ulcer; L97.121 Non-pressure chronic ulcer of left thigh limited to breakdown of skin; L97.211 Non-pressure chronic ulcer of right calf limited to breakdown of skin; E11.622 Type 2 diabetes mellitus with other skin ulcer; L97.521 Non-pressure chronic ulcer of other part of left foot limited to breakdown of skin; I25.10 Atherosclerotic heart disease of native coronary artery without angina pectoris; E11.52 Type 2 diabetes mellitus with diabetic peripheral angiopathy with gangrene; I96 Gangrene, not elsewhere classified; E78.5 Hyperlipidemia, unspecified; E11.22 Type 2 diabetes mellitus with diabetic chronic kidney disease; N18.6 End stage renal disease; E11.21 Type 2 diabetes mellitus with diabetic nephropathy; Z95.1 Presence of aortocoronary bypass graft; Z99.2 Dependence on renal dialysis; Y83.8 Other surgical procedures as the cause of abnormal reaction of the patient, or of later complication, without mention of misadventure at the time of the procedure
CPT/HCPCS: 82948 ×5; G0463

== ENCOUNTER → 2017-12-31 | Outpatient (CLI) | payer MEDICARE | END | disposition home or self-care (01) | LOC: WHH 09:30 | PROVIDERS: ATTEND Family Medicine | DX: T81.89XD Other complications of procedures, not elsewhere classified, subsequent encounter (principal); E11.621 Type 2 diabetes mellitus with foot ulcer; L97.521 Non-pressure chronic ulcer of other part of left foot limited to breakdown of skin; E11.622 Type 2 diabetes mellitus with other skin ulcer; L97.121 Non-pressure chronic ulcer of left thigh limited to breakdown of skin; L97.211 Non-pressure chronic ulcer of right calf limited to breakdown of skin; I25.10 Atherosclerotic heart disease of native coronary artery without angina pectoris; E11.52 Type 2 diabetes mellitus with diabetic peripheral angiopathy with gangrene; I96 Gangrene, not elsewhere classified; E78.5 Hyperlipidemia, unspecified; E11.22 Type 2 diabetes mellitus with diabetic chronic kidney disease; I12.0 Hypertensive chronic kidney disease with stage 5 chronic kidney disease or end stage renal disease; N18.6 End stage renal disease; E11.21 Type 2 diabetes mellitus with diabetic nephropathy; Z95.1 Presence of aortocoronary bypass graft; Z99.2 Dependence on renal dialysis; Y83.8 Other surgical procedures as the cause of abnormal reaction of the patient, or of later complication, without mention of misadventure at the time of the procedure | CPT/HCPCS: 82948 ×3; G0463 ==

== ENCOUNTER → 2018-01-01 | Outpatient (CLI) | payer MEDICARE ==
[~2018-01-01] MED LIST changes: +LIDOCAINE HCL 4% LTA SOL 4 ML VIAL TP ONE
[2018-01-01 15:00] VITALS: BP 118/65
== END | disposition home or self-care (01) ==
LOC: WHH 13:00
PROVIDERS: ATTEND Family Medicine
DX: T81.89XD Other complications of procedures, not elsewhere classified, subsequent encounter (principal); E11.621 Type 2 diabetes mellitus with foot ulcer; L97.521 Non-pressure chronic ulcer of other part of left foot limited to breakdown of skin; E11.622 Type 2 diabetes mellitus with other skin ulcer; L97.121 Non-pressure chronic ulcer of left thigh limited to breakdown of skin; L97.211 Non-pressure chronic ulcer of right calf limited to breakdown of skin; I25.10 Atherosclerotic heart disease of native coronary artery without angina pectoris; E11.52 Type 2 diabetes mellitus with diabetic peripheral angiopathy with gangrene; I96 Gangrene, not elsewhere classified; E78.5 Hyperlipidemia, unspecified; E11.22 Type 2 diabetes mellitus with diabetic chronic kidney disease; I12.0 Hypertensive chronic kidney disease with stage 5 chronic kidney disease or end stage renal disease; N18.6 End stage renal disease; E11.21 Type 2 diabetes mellitus with diabetic nephropathy; Z95.1 Presence of aortocoronary bypass graft; Z99.2 Dependence on renal dialysis; Y83.8 Other surgical procedures as the cause of abnormal reaction of the patient, or of later complication, without mention of misadventure at the time of the procedure
CPT/HCPCS: 11042; 11045; 82948

== ENCOUNTER 2018-01-02 09:09 | Inpatient (IN) | payer MEDICARE ==
[~2018-01-02] VITALS: Ht 160 cm; Wt 61.1 kg
[~2018-01-02 09:09] MED LIST changes: -LIDOCAINE HCL 4% LTA SOL 4 ML VIAL TP ONE
[2018-01-02 09:40] LABS: BASOPHILS % (AUTO) 0.4 % (0.0-5.0); EOSINOPHILS % (AUTO) 0.2 % (0.0-8.0); HEMATOCRIT 33.3 % (42-54); LYMPHOCYTES % (AUTO) 4.1 % (21.0-51.0); MEAN CORPUSCULAR HEMOGLOBIN 31.1 pg (27.0-33.0); MEAN CORPUSCULAR HGB CONC 32.4 g/dL (32.0-36.0); MEAN CORPUSCULAR VOLUME 95.9 fL (79-99); MONOCYTES % (AUTO) 8.8 % (3.0-13.0); NEUTROPHILS % (AUTO) 86.5 % (40.0-77.0); NUCLEATED RED BLOOD CELLS 0.1 % (0.0-0.19); PLATELET COUNT (AUTO) 108 K/uL (130-400); RED BLOOD CELL COUNT(AUTO) 3.47 MIL/uL (4.50-6.20); RED CELL DISTRIBUTION WIDTH 16.9 % (11.0-15.5); WHITE BLOOD COUNT (AUTO) 17.9 K/uL (4.8-10.8)
[2018-01-02 09:47] LABS: CREATININE 7.8 mg/dL (0.5-1.5)
[2018-01-02 09:52] LABS: ALBUMIN 2.3 g/dL (3.5-5.0); BILIRUBIN,TOTAL 7.9 mg/dL (0.2-1.0); TOTAL PROTEIN, SERUM 6.3 g/dL (6.0-8.3)
[2018-01-02] MEDS ORDERED: ACETAMINOPHEN 325 MG TAB ONE (10:58)
[2018-01-02] MEDS ORDERED: CEFTRIAXONE SODIUM 1 GM ONE (10:58)
[2018-01-02] MEDS ORDERED: SODIUM CHLORIDE 0.9% 250 ML IV ONE (10:59)
[2018-01-02 14:32] VITALS: BP 115/60
[2018-01-02] MEDS ORDERED: ALBUMIN (HUMAN) 25% 100 ML IV PRN (16:15)
[2018-01-02] MEDS ORDERED: 0.9% SODIUM CHLORIDE 250 ML IV BAG IV PRN (16:15)
[2018-01-02] MEDS ORDERED: SODIUM CHLORIDE 0.9% 1000ML 1,000 ML IV PRN (16:15)
[2018-01-02] MEDS: SEVELAMER HCL 800 MG TABLET PO SCH (17:00)
[2018-01-02] MEDS ORDERED: DEXTROSE 50%-WATER 50 ML DISP.SYRIN IV ONE (20:31)
[2018-01-02 20:34] VITALS: BP 120/64
[2018-01-02] MEDS: LEVOFLOXACIN 500 MG TABLET PO SCH (21:59)
[2018-01-02] MEDS: METRONIDAZOLE 500 MG TABLET PO SCH ×2 (22:00→22:41)
[2018-01-02 23:28] VITALS: BP 103/59
[2018-01-03 03:41] VITALS: BP 106/59
[2018-01-03 05:49] LABS: HEMATOCRIT 31.6 % (42-54); MEAN CORPUSCULAR HEMOGLOBIN 32.8 pg (27.0-33.0); MEAN CORPUSCULAR HGB CONC 34.1 g/dL (32.0-36.0); MEAN CORPUSCULAR VOLUME 96.1 fL (79-99); NUCLEATED RED BLOOD CELLS 0.1 % (0.0-0.19); PLATELET COUNT (AUTO) 114 K/uL (130-400); RED BLOOD CELL COUNT(AUTO) 3.29 MIL/uL (4.50-6.20); RED CELL DISTRIBUTION WIDTH 17.4 % (11.0-15.5); WHITE BLOOD COUNT (AUTO) 15.1 K/uL (4.8-10.8)
[2018-01-03 05:56] LABS: BAND NEUTROPHILS % (MANUAL) 2 % (0-2); LYMPHOCYTES % (MANUAL) 7 % (22-44); MAN.DIFF COMMENT-IMPRESSION MANUAL DIFFERENTIAL; MONOCYTES % (MANUAL) 7 % (2-9); PLATELET MORPHOLOGY COMMENT DECREASED; SEGMENTED NEUTROPHILS % 84 % (40-70)
[2018-01-03 06:05] LABS: CREATININE 5.5 mg/dL (0.5-1.5); PHOSPHORUS 3.3 mg/dL (2.5-4.9); POTASSIUM 3.4 mmol/L (3.5-5.1)
[2018-01-03] MEDS: METRONIDAZOLE 500 MG TABLET PO SCH ×3 (06:13→22:42)
[2018-01-03 08:00] VITALS: BP 150/56
[2018-01-03] MEDS: SEVELAMER HCL 800 MG TABLET PO SCH ×3 (08:00→16:38)
[2018-01-03] MEDS: FOLIC ACID/VITAMIN B COMP W-C 1 MG CAPSULE PO SCH (08:25)
[2018-01-03] MEDS: ASPIRIN 81 MG EC TAB PO SCH (08:25)
[2018-01-03] MEDS ORDERED: ATORVASTATIN CALCIUM 10 MG TABLET PO SCH (09:00)
[2018-01-03] MEDS ORDERED: ACETAMINOPHEN 325 MG TAB ONE ×2 (09:05→15:17)
[2018-01-03 12:00] VITALS: BP 103/58
[2018-01-03] MEDS: HONEY 1 APPL/ML TUBE TP SCH (15:20)
[2018-01-03 16:00] VITALS: BP 114/72
[2018-01-03 19:35] VITALS: BP 98/49
[2018-01-03] MEDS: LEVOFLOXACIN 500 MG TABLET PO SCH (20:49)
[2018-01-03] MEDS: ATORVASTATIN CALCIUM 10 MG TABLET PO SCH (20:50)
[2018-01-03] MEDS: ACETAMINOPHEN 325 MG TAB PO PRN (20:51)
[2018-01-03 23:30] VITALS: BP 106/106
[2018-01-04 04:21] VITALS: BP 120/64
[2018-01-04 05:44] LABS: HEMATOCRIT 30.2 % (42-54); MEAN CORPUSCULAR HEMOGLOBIN 32.6 pg (27.0-33.0); MEAN CORPUSCULAR HGB CONC 34.1 g/dL (32.0-36.0); MEAN CORPUSCULAR VOLUME 95.5 fL (79-99); PLATELET COUNT (AUTO) 98 K/uL (130-400); RED BLOOD CELL COUNT(AUTO) 3.16 MIL/uL (4.50-6.20); RED CELL DISTRIBUTION WIDTH 17.6 % (11.0-15.5); WHITE BLOOD COUNT (AUTO) 12.4 K/uL (4.8-10.8)
[2018-01-04 05:50] LABS: BAND NEUTROPHILS % (MANUAL) 2 % (0-2); LYMPHOCYTES % (MANUAL) 5 % (22-44); MAN.DIFF COMMENT-IMPRESSION MANUAL DIFFERENTIAL; MONOCYTES % (MANUAL) 5 % (2-9); PLATELET MORPHOLOGY COMMENT DECREASED; SEGMENTED NEUTROPHILS % 88 % (40-70)
[2018-01-04 05:54] LABS: CREATININE 6.9 mg/dL (0.5-1.5); POTASSIUM 3.4 mmol/L (3.5-5.1)
[2018-01-04] MEDS: METRONIDAZOLE 500 MG TABLET PO SCH ×3 (06:23→21:32)
[2018-01-04 07:00] VITALS: BP 106/63
[2018-01-04] MEDS: LEVOFLOXACIN 500 MG TABLET PO SCH (08:23)
[2018-01-04] MEDS: SEVELAMER HCL 800 MG TABLET PO SCH ×3 (08:23→15:54)
[2018-01-04] MEDS: ASPIRIN 81 MG EC TAB PO SCH (08:23)
[2018-01-04] MEDS: FOLIC ACID/VITAMIN B COMP W-C 1 MG CAPSULE PO SCH (08:23)
[2018-01-04 11:00] VITALS: BP 120/70
[2018-01-04] MEDS ORDERED: PHARMACY COMMUNICATION MISC SCH (14:00)
[2018-01-04] MEDS ORDERED: COMPOUND PO MISCELLANEOUS 1 EACH MISC MISC PRN (14:15)
[2018-01-04] MEDS: VANCOMYCIN 250MG/5ML ORAL SOLUTION 40ML PO SCH ×6 (15:53→21:32)
[2018-01-04] MEDS: HONEY 1 APPL/ML TUBE TP SCH (15:53)
[2018-01-04 16:00] VITALS: BP 105/70
[2018-01-04 19:00] VITALS: BP 103/58
[2018-01-04] MEDS: ATORVASTATIN CALCIUM 10 MG TABLET PO SCH (21:21)
[2018-01-04] MEDS: ACETAMINOPHEN 325 MG TAB PO PRN (21:21)
[2018-01-05] VITALS: BP 109/59
[2018-01-05 04:00] VITALS: BP 106/63
[2018-01-05 04:57] LABS: BASOPHILS % (AUTO) 0.4 % (0.0-5.0); EOSINOPHILS % (AUTO) 0.3 % (0.0-8.0); HEMATOCRIT 31.2 % (42-54); LYMPHOCYTES % (AUTO) 5.3 % (21.0-51.0); MEAN CORPUSCULAR HEMOGLOBIN 32.6 pg (27.0-33.0); MEAN CORPUSCULAR HGB CONC 33.8 g/dL (32.0-36.0); MEAN CORPUSCULAR VOLUME 96.3 fL (79-99); MONOCYTES % (AUTO) 10.2 % (3.0-13.0); NEUTROPHILS % (AUTO) 83.8 % (40.0-77.0); PLATELET COUNT (AUTO) 105 K/uL (130-400); RED BLOOD CELL COUNT(AUTO) 3.25 MIL/uL (4.50-6.20); RED CELL DISTRIBUTION WIDTH 17.4 % (11.0-15.5); WHITE BLOOD COUNT (AUTO) 12.2 K/uL (4.8-10.8)
[2018-01-05 05:09] LABS: ALBUMIN 1.9 g/dL (3.5-5.0); BILIRUBIN,TOTAL 7.5 mg/dL (0.2-1.0); CREATININE 5.4 mg/dL (0.5-1.5); POTASSIUM 3.5 mmol/L (3.5-5.1); TOTAL PROTEIN, SERUM 5.8 g/dL (6.0-8.3)
[2018-01-05] MEDS: METRONIDAZOLE 500 MG TABLET PO SCH ×3 (05:58→20:49)
[2018-01-05] MEDS: VANCOMYCIN 250MG/5ML ORAL SOLUTION 40ML PO SCH ×8 (06:00→20:50)
[2018-01-05 07:00] VITALS: BP 99/60
[2018-01-05] MEDS: SEVELAMER HCL 800 MG TABLET PO SCH ×3 (08:08→16:51)
[2018-01-05] MEDS: ASPIRIN 81 MG EC TAB PO SCH (08:08)
[2018-01-05] MEDS: FOLIC ACID/VITAMIN B COMP W-C 1 MG CAPSULE PO SCH (08:08)
[2018-01-05] MEDS: LEVOFLOXACIN 500 MG TABLET PO SCH (08:08)
[2018-01-05 11:00] VITALS: BP 126/68
[2018-01-05] MEDS: HONEY 1 APPL/ML TUBE TP SCH (14:47)
[2018-01-05 16:00] VITALS: BP 120/65
[2018-01-05] MEDS: ACETAMINOPHEN 325 MG TAB PO PRN (16:56)
[2018-01-05 19:54] VITALS: BP 114/65
[2018-01-05] MEDS: ATORVASTATIN CALCIUM 10 MG TABLET PO SCH (20:49)
[2018-01-06] VITALS: BP 109/62
[2018-01-06 04:00] VITALS: BP 136/78
[2018-01-06] MEDS: METRONIDAZOLE 500 MG TABLET PO SCH ×3 (05:36→22:20)
[2018-01-06] MEDS: VANCOMYCIN 250MG/5ML ORAL SOLUTION 40ML PO SCH ×6 (05:36→17:43)
[2018-01-06] MEDS: SEVELAMER HCL 800 MG TABLET PO SCH ×3 (08:35→17:00)
[2018-01-06] MEDS: ASPIRIN 81 MG EC TAB PO SCH (08:35)
[2018-01-06] MEDS: LEVOFLOXACIN 500 MG TABLET PO SCH (08:36)
[2018-01-06 08:39] VITALS: BP 127/67
[2018-01-06] MEDS: FOLIC ACID/VITAMIN B COMP W-C 1 MG CAPSULE PO SCH (08:43)
[2018-01-06] MEDS: ACETAMINOPHEN 325 MG TAB PO PRN ×2 (09:23→23:35)
[2018-01-06 12:02] VITALS: BP 123/54
[2018-01-06] MEDS: HONEY 1 APPL/ML TUBE TP SCH ×2 (15:00→22:20)
[2018-01-06] MEDS: LOPERAMIDE HCL 2 MG CAP PO PRN (15:49)
[2018-01-06 16:19] VITALS: BP 91/65
[2018-01-06 19:56] VITALS: BP 111/64
[2018-01-06] MEDS: ATORVASTATIN CALCIUM 10 MG TABLET PO SCH (22:20)
[2018-01-07] VITALS: BP 127/72
[2018-01-07] MEDS: VANCOMYCIN 250MG/5ML ORAL SOLUTION 40ML PO SCH ×8 (01:00→16:42)
[2018-01-07 03:39] VITALS: BP 120/70
[2018-01-07] MEDS: LOPERAMIDE HCL 2 MG CAP PO PRN (03:51)
[2018-01-07 05:26] LABS: HEMATOCRIT 31.3 % (42-54); MEAN CORPUSCULAR HEMOGLOBIN 32.8 pg (27.0-33.0); MEAN CORPUSCULAR VOLUME 96.7 fL (79-99); NUCLEATED RED BLOOD CELLS 0.1 % (0.0-0.19); PLATELET COUNT (AUTO) 125 K/uL (130-400); RED BLOOD CELL COUNT(AUTO) 3.24 MIL/uL (4.50-6.20); RED CELL DISTRIBUTION WIDTH 17.5 % (11.0-15.5)
[2018-01-07 05:36] LABS: CREATININE 5.3 mg/dL (0.5-1.5); POTASSIUM 3.5 mmol/L (3.5-5.1)
[2018-01-07 05:38] LABS: BAND NEUTROPHILS % (MANUAL) 6 % (0-2); LYMPHOCYTES % (MANUAL) 12 % (22-44); MAN.DIFF COMMENT-IMPRESSION MANUAL DIFFERENTIAL; MONOCYTES % (MANUAL) 5 % (2-9); PLATELET MORPHOLOGY COMMENT SLIGHTLY DECREASED; SEGMENTED NEUTROPHILS % 77 % (40-70)
[2018-01-07] MEDS: METRONIDAZOLE 500 MG TABLET PO SCH ×2 (07:43→14:44)
[2018-01-07 08:00] VITALS: BP 138/76
[2018-01-07] MEDS: LEVOFLOXACIN 500 MG TABLET PO SCH (08:12)
[2018-01-07] MEDS: ASPIRIN 81 MG EC TAB PO SCH (08:12)
[2018-01-07] MEDS: FOLIC ACID/VITAMIN B COMP W-C 1 MG CAPSULE PO SCH (08:12)
[2018-01-07] MEDS: SEVELAMER HCL 800 MG TABLET PO SCH ×3 (08:12→16:40)
[2018-01-07 11:51] VITALS: BP 118/71
[2018-01-07] MEDS: HONEY 1 APPL/ML TUBE TP SCH (14:44)
== END 2018-01-07 18:15 | DRG 871 ==
LOC: EDH 09:09 → OBSVTOIN 12:30 → EDHIP 12:30 → 3DH 13:58
PROVIDERS: ADMIT Internal Medicine Nephrology; ATTEND Internal Medicine Nephrology
PROC: 5A1D70Z Performance of Urinary Filtration, Intermittent, Less than 6 Hours Per Day (ICD-10-PCS; principal; 2018-01-02)
PROC: 5A1D70Z Performance of Urinary Filtration, Intermittent, Less than 6 Hours Per Day (ICD-10-PCS; 2018-01-04)
PROC: 5A1D70Z Performance of Urinary Filtration, Intermittent, Less than 6 Hours Per Day (ICD-10-PCS; 2018-01-06)
DX: A41.9 Sepsis, unspecified organism (principal); N18.6 End stage renal disease; A04.72 Enterocolitis due to Clostridium difficile, not specified as recurrent; I12.0 Hypertensive chronic kidney disease with stage 5 chronic kidney disease or end stage renal disease; K52.9 Noninfective gastroenteritis and colitis, unspecified; E11.22 Type 2 diabetes mellitus with diabetic chronic kidney disease; D64.9 Anemia, unspecified; E11.21 Type 2 diabetes mellitus with diabetic nephropathy; E11.51 Type 2 diabetes mellitus with diabetic peripheral angiopathy without gangrene; E11.621 Type 2 diabetes mellitus with foot ulcer; E78.5 Hyperlipidemia, unspecified; I25.10 Atherosclerotic heart disease of native coronary artery without angina pectoris; I99.8 Other disorder of circulatory system; K29.70 Gastritis, unspecified, without bleeding; L97.529 Non-pressure chronic ulcer of other part of left foot with unspecified severity; Z99.2 Dependence on renal dialysis; Z95.1 Presence of aortocoronary bypass graft; Z88.0 Allergy status to penicillin; Z88.8 Allergy status to other drugs, medicaments and biological substances; Z91.040 Latex allergy status; Z83.3 Family history of diabetes mellitus; Z82.49 Family history of ischemic heart disease and other diseases of the circulatory system
CPT/HCPCS: 11042; 11045; 36415; 80048; 80053; 82948; 83605; 84100; 85025; 87040; 87507; 90935; 92610; G0463; J0696; J3370; J7030; J7070

== ENCOUNTER → 2018-01-26 | Outpatient (CLI) | payer MEDICARE ==
[~2018-01-26] MED LIST changes: +IOHEXOL-350 50ML VIAL IV ONE
== END | disposition home or self-care (01) ==
LOC: RAH 13:37
PROVIDERS: ATTEND Otolaryngology Plastic Surgery within the Head & Neck
DX: G31.89 Other specified degenerative diseases of nervous system (principal); Z86.73 Personal history of transient ischemic attack (TIA), and cerebral infarction without residual deficits
CPT/HCPCS: 70470; Q9967